=== PATIENT | male | born 1950 ===

== ENCOUNTER → 2017-08-30 | Outpatient (CLI) | payer OTHER ==
[~2017-08-30] MED LIST: ALPR1 PO; MECL25 PO; QUET25 PO; TAMS.4ER PO; TRAZ50 PO; XARELTO15 MG PO
== END | disposition home or self-care (01) ==
LOC: LAB 16:50
DX: L60.2 Onychogryphosis (principal); B35.1 Tinea unguium
CPT/HCPCS: 87102; 87106; 87220